=== PATIENT | female | born 1975 | race Caucasian/White ===

== ENCOUNTER → 2020-01-31 | Outpatient (CLI) | payer BC ==
--- NOTE | 2020-01-31 14:17 | KCIC ---
EXAM: MRI Cervical Spine without IV contrast INDICATION: Reason: MYOPATHY / Spl. Instructions: / History: Onset of burning in all extremeties and also weakness in legs.. TECHNIQUE: Sagittal T1-w, T2-w, and STIR images, and axial T2-w and T2-GRE images of the cervical spine. COMPARISON: None FINDINGS: CRANIOCERVICAL JUNCTION: Unremarkable. ALIGNMENT: Alignment is within normal limits. OSSEOUS: No evidence of fracture or bone destruction. Marrow signal is within normal limits. SPINAL CORD: The cervical spinal cord is intrinsically normal. There is low density along the posterior longitudinal ligament appears mildly thickened between the C2-C3 and C6-7 levels. This could potentially reflect early ossification of the posterior longitudinal ligament but would be more easily confirmed on CT if clinically warranted. SOFT TISSUES: Unremarkable. DISC LEVELS: C2-C3: No significant stenosis. Central canal is widely patent measuring 14 mm AP diameter.. C3-C4: Minimal right uncovertebral hypertrophy. No significant stenosis. Central canal AP diameter measures 10 mm. C4-C5: Bilateral vertebral hypertrophy and disc desiccation flattens the ventral thecal sac, resulting in central canal AP narrowing to 8.5 mm. The neural foramina are patent C5-C6: Bilateral uncovertebral hypertrophy, left greater than right results in mild flattening of the ventral thecal sac with central canal AP narrowing down to 8.4 mm. There is mild left foraminal narrowing. C6-C7: Mild bilateral uncovertebral hypertrophy flattens the ventral thecal sac. Central canal AP diameter measures 10 mm. No foraminal stenosis. C7-T1: Unremarkable. 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 No associated cord signal abnormality. EXAM: MRI Lumbar Spine without IV contrast INDICATION: Reason: MYOPATHY / Spl. Instructions: / History: Onset of burning in all extremeties and also weakness in legs.. TECHNIQUE: Sagittal T1-w, T2-w, and STIR images, and axial T1-w and T2-w images of the lumbar spine. COMPARISON: None FINDINGS: The lowest fully formed disc is referred to as the L5-S1 level. ALIGNMENT: Alignment shows mild rightward convexity scoliotic curvature, apex at L2 OSSEOUS: No evidence of fracture or bone destruction. Marrow signal is within normal limits. CONUS MEDULLARIS & CAUDA EQUINA: The conus medullaris is in normal position. The conus medullaris and cauda equina are intrinsically normal. SOFT TISSUES: Unremarkable. DISC LEVELS: T12-L1: Unremarkable. L1-L2: Mild disc desiccation. No stenosis. L2-L3: Unremarkable. L3-L4: Unremarkable. L4-L5: Unremarkable. L5-S1: Disc desiccation with focal T2 signal hyperintensity in the dorsal annulus that could reflect a mild annular tear. IMPRESSION: Mild lumbar spinal degenerative changes and mild dextroscoliosis as described. No significant spinal canal stenosis. Electronically signed by: Daja Collins MD (01/31/2020 2:14 PM) [id number]
--- NOTE | 2020-01-31 15:27 | KCIC ---
BRAIN W/O CONTRAST Date: 01/31/2020 12:30 PM Indication: Reason: MYOPATHY / Spl. Instructions: / History: Onset of burning in all extremeties and also weakness in legs. Comparison: None. Technique: Multiplanar multisequence MRI of the brain was performed without intravenous contrast using the standard protocol. Findings: No acute infarct. No acute or chronic hemorrhage. The ventricles are normal in size and configuration without hydrocephalus. The scalp and calvarium are normal. The pituitary and sella are normal. No Chiari malformation. The visualized upper cervical spine is normal. The visualized orbits and globes are normal. The visualized paranasal sinuses are clear. The mastoid air cells are clear. Normal flow voids within the vertebral, basilar, and internal carotid arteries indicating patency. IMPRESSION: No acute intracranial process. Electronically signed by: Jose De Leon MD (01/31/2020 3:24 PM) [id number]
== END | disposition home or self-care (01) ==
LOC: KCIC MRI 12:19
PROVIDERS: ATTEND Family Medicine
DX: M51.17 Intervertebral disc disorders with radiculopathy, lumbosacral region (principal); M47.22 Other spondylosis with radiculopathy, cervical region; M51.14 Intervertebral disc disorders with radiculopathy, thoracic region; M51.15 Intervertebral disc disorders with radiculopathy, thoracolumbar region; M47.26 Other spondylosis with radiculopathy, lumbar region; G72.9 Myopathy, unspecified
CPT/HCPCS: 70551; 72141; 72148